=== PATIENT | female | born 1980 | race Caucasian/White ===

== ENCOUNTER 2022-01-30 14:13 | Emergency (ER) | payer MEDICAID ==
[2022-01-30] MEDS ORDERED: HYDROmorphone 1 MG/ML CARPUJECT IVP STA ×2 (14:32→16:26)
--- NOTE | 2022-01-30 14:33 | ED Physician Documentation ---
PD HPI ABD PAIN - Stated complaint Stated Complaint: LOW BACK/ABD PAIN - Chief complaint Chief Complaint: Abd Pain - History obtained from History obtained from: Patient - Additional information Additional information: Right flank pain radiating to the right lower quadrant since yesterday. Seems similar to a single kidney stone she had in the past that she passed without intervention. It is associated with nausea. She is currently on her menses. Review of Systems Ten Systems: 10 systems reviewed and negative Constitutional: reports: Chills Cardiac: denies: Chest pain / pressure, Palpitations Respiratory: denies: Dyspnea, Cough PD PAST MEDICAL HISTORY - Present Medications Home Medications: Ambulatory Orders Medication Instructions Recorded Confirmed Oxycodone HCl/Acetaminophen 1 - 2 each PO Q6H PRN #10 tablet 01/30/22 [Percocet 5-325 mg Tablet] - Allergies Allergies/Adverse Reactions: Allergies Allergy/AdvReac Type Severity Reaction Status Date / Time acetaminophen [From Vicodin] Allergy Emesis Verified 01/30/22 14:18 hydrocodone [From Vicodin] Allergy Emesis Verified 01/30/22 14:18 PD ED PE NORMAL - Vitals Vital signs reviewed: Yes - General General: Alert and oriented X 3, No acute distress - HEENT HEENT: PERRL, EOMI - Neck Neck: Supple, no meningeal sign, No bony TTP, No bruit - Cardiac Cardiac: RRR, No murmur - Respiratory Respiratory: No respiratory distress, Clear bilaterally - Abdomen Abdomen: Normal bowel sounds, Soft, Other (She has some right flank tenderness, minimal lower abdominal tenderness.) - Back Back: No spinal TTP - Neuro Neuro: Alert and oriented X 3, Normal speech Results - Vitals Vitals: Vital Signs - 24 hr 01/30/22 01/30/22 01/30/22 14:18 16:41 16:52 Temperature 36.6 C Heart Rate 90 78 56 L Respiratory 18 14 18 Rate Blood Pressure 140/96 H 118/78 118/78 O2 Saturation 100 97 99 Oxygen O2 Source Room air - Labs Labs: Laboratory Tests 01/30/22 01/30/22 01/30/22 14:34 14:47 14:47 WBC 8.2 RBC 4.36 Hgb 13.6 Hct 41.9 MCV 96.1 MCH 31.2 H MCHC 32.5 RDW 12.9 Plt Count 281 MPV 9.8 Neut # (Auto) 4.9 Lymph # (Auto) 2.4 Chambers # (Auto) 0.6 Eos # (Auto) 0.2 Baso # (Auto) 0.0 Absolute Nucleated RBC 0.00 Nucleated RBC % 0.0 Sodium 136 Potassium 3.5 Chloride 100 L Carbon Dioxide 28 Anion Gap 8.0 BUN 11 Creatinine 0.7 Estimated GFR (MDRD) 92 Glucose 63 L Calcium 9.6 Total Bilirubin 0.4 AST 19 ALT 17 Alkaline Phosphatase 49 Total Protein 8.1 Albumin 4.3 Globulin 3.8 Albumin/Globulin Ratio 1.1 Urine Color YELLOW Urine Clarity CLEAR Urine pH 6.5 Ur Specific [place] 1.020 Urine Protein NEGATIVE Urine Glucose (UA) NEGATIVE Urine Ketones NEGATIVE Urine Occult Blood MODERATE H Urine Nitrite NEGATIVE Urine Bilirubin NEGATIVE Urine Urobilinogen 0.2 (NORMAL) Ur Leukocyte Esterase NEGATIVE Urine RBC 6-10 H Urine WBC 0-3 Ur Squamous Epith Cells MOD Squamous H Urine Bacteria Few Ur Microscopic Review INDICATED Urine Culture Comments NOT INDICATED Urine HCG, Qual NEGATIVE PD MEDICAL DECISION MAKING - ED course ED course: 42-year-old woman presents with flank and abdominal pain most consistent with renal colic. CT was done and demonstrated no evidence of that. Although the read for the CAT scan was relatively normal, on my view I felt that there was likely some pelvic pathology and this was followed with an ultrasound demonstrating a fibroid uterus which may be causative in the stools discussed with her. The patient and family were counseled as to the diagnosis and need for follow- up. I counseled the patient with regard to signs and symptoms that would necessitate an urgent reevaluation in the emergency department. They understand they are welcome to return at any time if worse or if not improving as expected. This document was made in part using voice recognition software. While efforts are made to proofread this documents, sound alike and grammatical errors may occur. Departure - Departure Disposition: 01 Home, Self Care Clinical Impression: Uterine fibroid, Pelvic pain in female Condition: Good Record reviewed to determine appropriate education?: Yes Instructions: ED Pelvic Pain [facility] Prescriptions: Oxycodone HCl/Acetaminophen [Percocet 5-325 mg Tablet] 1 - 2 each PO Q6H PRN #10 tablet PRN Reason: pain Comments: I sent your prescription electronically to the [facility] pharmacy at the [facility] of [address] in [place]. As discussed what we found today is that you have a fibroid uterus which can cause pain during your menses as you are currently on. I would call your insurance company on the next day to see if they have a vacuum tester cans closer to home for you in their network that she can follow- up with regarding the fibroid uterus. Return for new or worsening symptoms. I am prescribing a short course of narcotic pain medication for you. These are potentially dangerous and addictive medications that should be used carefully. These medications may constipate you. Take an sgcy-kfe-boybenm stool softener (docusate) twice daily with plenty of water while taking these medications. If you go 24 hours without a bowel movement, take [id number] miralax, per package instructions. Do not drink or drive while taking these medications. If you received narcotic or sedating medications while in the emergency department, do not drive for 24 hours. Store this medication in a safe, secure place and out of reach of children. It is a violation of federal law to give or sell this medication to another person or to use in a manner other than prescribed. The ED will not refill narcotic prescriptions, including prescriptions lost or stolen. To dispose of unwanted medications: 1. The [facility] at [address] [facility] in [place] has a medication drop box. They accept prescription medications (in pill form) Sunday through Sunday 9:00 a.m. to 5:00 p.m. 2. The [facility] accepts prescription medications (in pill form only) for disposal year round. Call for more information. 3. Contact the [facility] for the next [facility] sponsored prescription drug collection event. , [phone], or [phone]; Note that many narcotic pain relievers also contain Tylenol/acetaminophen. Please ensure that your total dose of acetaminophen from all sources does not exceed 3 g (3000 mg) per day. Discharge Date/Time: 01/30/22 16:57
[2022-01-30 14:53] LABS: BASOPHILS % (AUTO) 0.4 %; EOSINOPHILS # (AUTO) 0.2 10^3/uL (0.0-0.7); EOSINOPHILS % (AUTO) 2.7 %; HCT - HEMATOCRIT 41.9 % (37.0-47.0); HGB - HEMOGLOBIN 13.6 g/dL (12.0-16.0); LYMPHOCYTES # (AUTO) 2.4 10^3/uL (1.5-3.5); LYMPHOCYTES % (AUTO) 29.8 %; MEAN CORPUSCULAR HEMOGLOBIN 31.2 pg (27.0-31.0); MEAN CORPUSCULAR HGB CONC 32.5 g/dL (32.0-36.0); MEAN CORPUSCULAR VOLUME 96.1 fL (81.0-99.0); MEAN PLATELET VOLUME 9.8 fL (7.9-10.8); MONOCYTES # (AUTO) 0.6 10^3/uL (0.0-1.0); MONOCYTES % (AUTO) 6.9 %; NEUTROPHILS # (AUTO) 4.9 10^3/uL (1.5-6.6); PLT - PLATELET COUNT 281 10^3/uL (130-450); RED BLOOD COUNT 4.36 10^6/uL (4.20-5.40); RED CELL DISTRIBUTION WIDTH 12.9 % (12.0-15.0); WHITE BLOOD COUNT 8.2 x10^3/uL (4.8-10.8)
[2022-01-30 14:56] LABS: BILIRUBIN,URINE NEGATIVE (NEGATIVE); GLUCOSE, URINE (UA) NEGATIVE (NEGATIVE); KETONES,URINE (UA) NEGATIVE (NEGATIVE); LEUKOCYTE ESTERASE, URINE NEGATIVE (NEGATIVE); NITRITE,URINE NEGATIVE (NEGATIVE); OCCULT BLOOD,URINE MODERATE (NEGATIVE); PH,URINE 6.5 PH (5.0-7.5); PROTEIN,URINE NEGATIVE (NEGATIVE); UROBILINOGEN,URINE 0.2 (NORMAL) E.U./dL (NORMAL)
[2022-01-30 15:01] LABS: CLARITY,URINE CLEAR (CLEAR); HCG UR QUAL NEGATIVE
[2022-01-30] MEDS ORDERED: ONDANSETRON 4 MG/2 ML VIAL IVP STA (15:05)
[2022-01-30 15:06] LABS: ALBUMIN 4.3 g/dL (3.2-5.5); ALBUMIN/GLOBULIN RATIO 1.1 (1.0-2.2); BILIRUBIN,TOTAL 0.4 mg/dL (0.2-1.0); CALCIUM 9.6 mg/dL (8.5-10.3); CREATININE 0.7 mg/dL (0.4-1.0); POTASSIUM 3.5 mmol/L (3.5-5.0); TOTAL PROTEIN 8.1 g/dL (6.7-8.2)
[2022-01-30 15:09] LABS: BACTERIA,URINE Few /HPF (None Seen); SQUAMOUS EPITHELIAL CELL,UR MOD Squamous (<= Few); WBC,URINE 0-3 /HPF (0-5)
--- NOTE | 2022-01-30 15:26 | CT Report ---
PROCEDURE: Abdomen/Pelvis WO INDICATIONS: R flank pain TECHNIQUE: Noncontrast 5 mm thick sections acquired from the diaphragms to the symphysis. 5 mm coronal and sagi ttal reformats were then performed. For radiation dose reduction, the following was used: automated exposure control, adjustment of mA and/or kV according to patient size. COMPARISON: None. FINDINGS: Image quality: Excellent. ABDOMEN: Lung bases: Lung bases are clear. Heart size is normal. Solid organs: Liver and spleen are normal in size. Gallbladder wall does not appear thickened. P ancreas is normal in contours. No adrenal nodules. Kidneys are normal in size, without hydronephros is or nephrolithiasis. Peritoneum and bowel: Unenhanced bowel loops demonstrate normal wall thickness and caliber. No free fluid or air. No appendix can be seen, either normal or abnormal. No focal right lower quadrant inf lammatory changes are seen. Nodes and vessels: No retroperitoneal or mesenteric adenopathy by size criteria. Aorta and inferior vena cava are normal in caliber. Miscellaneous: No ventral hernias. PELVIS: Genitourinary: Bladder wall thickness is normal. The uterus demonstrates an unremarkable appearance for age. No adnexal masses are seen. Tampon artifact is incidentally noted. Miscellaneous: No inguinal hernias or adenopathy. Bones: No suspicious bony lesions. No vertebral body compression fractures. IMPRESSION: Negative for kidney stones or findings of obstructive uropathy. Reviewed by: Eric Easley MD on 01/30/2022 3:25 PM PDT Approved by: Eric Easley MD on 01/30/2022 3:25 PM PDT Station ID: [id number]
[2022-01-30 16:42] VITALS: BP 118/78
--- NOTE | 2022-01-30 16:46 | Ultrasound Report ---
PROCEDURE: Pelvic w/Doppler Limited INDICATIONS: RT PELVIC PAIN TECHNIQUE: Real-time transabdominal scanning was performed of the pelvic organs, with image documentation. Dopp ler interrogation was performed of the ovaries bilaterally. COMPARISON: None. FINDINGS: Uterus: Uterus is normal in size at 9.2 x 4.5 x 5.6 cm. Endometrium measures 0.8 mm in combined thi ckness. Uterus is heterogeneous. There is a right anterior subserosal focus of heterogeneous [place]ogen[place] city measuring 21 x 18 x 20 mm. Similar focus is noted in the left posterior subserosal region measur ing 32 x 31 x 30 mm and a left anterior subserosal focus measuring 20 x 19 x 15 mm. Ovaries: Right ovary measures 2.4 x 1.2 x 1.9 cm with volume measuring 2.9 mL. Left ovary measures 3 .2 x 1.5 x 2.7 cm, volume 6.8 mL. Normal appearing arterial and venous waveforms are confirmed to ea ch ovary.] IMPRESSION: Uterine fibroids. Normal visualized vascular flow to the ovaries. No evidence of torsion at time of exam. Reviewed by: Jazmyn Carter MD on 01/30/2022 4:45 PM PDT Approved by: Jazmyn Carter MD on 01/30/2022 4:45 PM PDT Station ID: [id number]
== END 2022-01-30 16:57 | disposition home or self-care (01) ==
LOC: ED 14:13
DX: D25.9 Leiomyoma of uterus, unspecified (principal)
CPT/HCPCS: 36415; 74176; 76856; 80053; 81001; 81025; 85025; 93976; 96374; 96375; 96376; 99283; 99284; J1170; 81003; 87086

== ENCOUNTER 2022-01-31 06:48 | Emergency (ER) | payer MEDICAID ==
--- NOTE | 2022-01-31 07:20 | ED Physician Documentation ---
History of Present Illness - Stated complaint Stated Complaint: LEFT HIP PX - Chief complaint Chief Complaint: Abd Pain - History obtained from History obtained from: Patient - History of Present Illness Timing: Prior to arrival - Additonal information Additional information: 42-year-old female presents for left hip pain. Of note, patient was seen yesterday for right sided abdominal pain, she underwent negative abdomen pelvis CT and negative pelvic ultrasound. Patient was discharged with a prescription for Percocets, which she states she did not take because she was afraid that it was the medication that made people "zombies". Patient states that the pain is in her left hip and buttock. Does not radiate. Aching in nature. Denies any previous trauma. Denies difficulty ambulating. Also endorsing nausea and anxiety. Review of Systems Ten Systems: 10 systems reviewed and negative Constitutional: denies: Fever, Chills, Myalgias Eyes: denies: Loss of vision, Decreased vision, Photophobia Ears: denies: Loss of hearing, Ear pain, Drainage/discharge GI: denies: Abdominal Pain, Abdominal Swelling, Nausea, Vomiting : denies: Dysuria, Frequency, Hesitancy, Unable to Void Musculoskeletal: reports: Joint pain (L buttock). denies: Neck pain, Back pain, Extremity pain PD PAST MEDICAL HISTORY - Past Medical History Past Medical History: No - Present Medications Home Medications: Ambulatory Orders Medication Instructions Recorded Confirmed Oxycodone HCl/Acetaminophen 1 - 2 each PO Q6H PRN #10 tablet 01/30/22 [Percocet 5-325 mg Tablet] Lidocaine Patch 5% [Lidoderm Patch] 1 patch TOP DAILY PRN #10 patch 01/31/22 Ondansetron Odt [Zofran Odt] 4 mg TL Q6H PRN #10 tablet 01/31/22 methocarbamoL [Robaxin] 500 mg PO Q6H #20 tablet 01/31/22 - Allergies Allergies/Adverse Reactions: Allergies Allergy/AdvReac Type Severity Reaction Status Date / Time acetaminophen [From Vicodin] Allergy Emesis Verified 01/31/22 07:07 hydrocodone [From Vicodin] Allergy Emesis Verified 01/31/22 07:07 - Social History Does the pt smoke?: No Smoking Status: Never smoker PD ED PE NORMAL - Vitals Vital signs reviewed: Yes - General General: Alert and oriented X 3, No acute distress, Well developed/nourished - HEENT HEENT: Atraumatic, PERRL, EOMI, Ears normal, Moist mucous membranes - Neck Neck: Supple, no meningeal sign, No bony TTP, No adenopathy, Thyroid normal - Cardiac Cardiac: RRR, No murmur, Strong equal pulses - Respiratory Respiratory: No respiratory distress, Clear bilaterally - Abdomen Abdomen: Soft, Non tender, Non distended - Back Back: No CVA TTP, No spinal TTP - Derm Derm: Normal color, Warm and dry, No rash - Extremities Extremities: No deformity, No tenderness to palpate, Normal ROM s pain, No edema, No calf tenderness / cord, Other (Negative straight leg raise) - Neuro Neuro: Alert and oriented X 3, general assistant 2-12 intact, No motor deficit, No sensory deficit, Normal speech - Psych Psych: Normal mood, Normal affect Results - Vitals Vitals: Vital Signs - 24 hr 01/31/22 01/31/22 07:05 07:27 Temperature 36.2 C L 36.4 C L Heart Rate 90 60 Respiratory 22 20 Rate Blood Pressure 137/90 H 144/95 H O2 Saturation 100 100 Oxygen O2 Source Room air PD MEDICAL DECISION MAKING - ED course ED course: Patient presenting for left hip pain. Of note, triage report states right abdomen and right flank pain, however patient denies this to me, she is pointing repeatedly to her left hip and buttock. Reports hesitance to take the medication she was prescribed yesterday due to potentially addictive effects. Labs and imaging from yesterday reviewed, all within normal limits. Patient counseled on the importance of compliance with medications, stated that as long as used for breakthrough pain only the percocets should not be addictive. Patient requested medication for nausea, which was provided. Patient ambulatory at the time of discharge, neurovascular intact. Departure - Departure Disposition: 01 Home, Self Care Clinical Impression: Hip pain, Nausea Condition: Stable Instructions: Nausea Vomit Control, ED Muscle Pain Leg Cramps Prescriptions: Lidocaine Patch 5% [Lidoderm Patch] 1 patch TOP DAILY PRN #10 patch PRN Reason: Pain methocarbamoL [Robaxin] 500 mg PO Q6H #20 tablet Ondansetron Odt [Zofran Odt] 4 mg TL Q6H PRN #10 tablet PRN Reason: Nausea / Vomiting Comments: You are being seen here today for hip and leg pain. You had a CT scan performed yesterday that looked at the affected area, there is no acute finding such as a fracture identified on your scans. Take Tylenol and Motrin as needed for pain as well as the Robaxin, which is a very mild muscle relaxer. You may also apply the lidocaine patches for numbing of your pain. If you continue to experience pain you may take the oxycodone you were prescribed yesterday. Use these only for breakthrough pain. You have also been prescribed Zofran for nausea. Discharge Date/Time: 01/31/22 08:01
[2022-01-31 07:28] VITALS: BP 144/95
[2022-01-31] MEDS ORDERED: ONDANSETRON ODT 4 MG TABLET TL STA (07:33)
[2022-01-31] MEDS ORDERED: LIDOCAINE PATCH 5% TOP STA (07:33)
[2022-01-31] MEDS ORDERED: hydrOXYzine PAMOATE 25 MG CAPSULE PO STA (07:33)
== END 2022-01-31 08:01 | disposition home or self-care (01) ==
LOC: ED 06:48
DX: M25.552 Pain in left hip (principal); R11.0 Nausea
CPT/HCPCS: 99282; 99283; A9270; Q0162; 81001; 81003; 87086